=== PATIENT | male | born 1975 | race Two or more races ===

== ENCOUNTER 2016-12-18 09:38 | Emergency (ER) | payer OTHER ==
[~2016-12-18] VITALS: Ht 165.1 cm; Wt 74.8 kg
[2016-12-18 09:58] VITALS: BP 128/87
[2016-12-18] MEDS ORDERED: IBUPROFEN600 MG ORAL (10:21)
[2016-12-18] MEDS ORDERED: BACITRACIN ZIN1 EACH TOPIC (10:21)
[2016-12-18] MEDS ORDERED: KEFLEX500 MG ORAL (10:21)
--- NOTE | 2016-12-18 10:27 | Emergency Room Report ---
History of Present Illness General Chief Complaint: Laceration Source: Patient Present Illness HPI Patient is a 41-year-old male who presented after having injury to his right hand. Patient was washing a knife when he accidentally cut the dorsum of his right index finger. Patient had Injury the last night approximately 10 PM Patient was noted to have no recent fever. Allergies: Coded Allergies: No Known Allergies (Unverified , 12/18/16) Patient History Past Medical History: see triage record Reviewed Nursing Documentation: PMH: Agreed, PSxH: Agreed Nursing Documentation-PMH Past Medical History: No Stated History Review of Systems All Other Systems: negative except mentioned in HPI Physical Exam Vital Signs Date Time Temp Pulse Resp B/P Pulse Ox O2 Delivery O2 Flow Rate FiO2 12/18/16 09:48 98.6 74 16 128/87 98 Room Air General Appearance: well appearing, no apparent distress, alert, GCS 15, non- toxic Head: normocephalic, atraumatic ENT: hearing grossly normal, normal voice Neck: full range of motion, supple Respiratory: no respiratory distress, speaking full sentences Cardiovascular #1: normal inspection Gastrointestinal: normal inspection, non tender, soft Musculoskeletal: normal inspection, no calf tenderness Neurologic: normal inspection, alert, oriented x3, responsive, computer designer III-XII nml as tested, normal gait Psychiatric: mood/affect normal Skin: no rash, laceration - laceration 1cm to dorsum of right index finger, normal extensor function Medical Decision Making Diagnostic Impression: Primary Impression: Laceration ER Course Patient was noted to have laceration to his finger.Patient presented for laceration. Differential diagnoses included foreign body, nerve injury, arterial injury among others. Patient's benign exam and does not appear to require any further imaging or laboratory testing at this time. The patient showed no evidence of infection. Wound is irrigated and sutured loosely with 2 sutures. The patient is to have the wound rechecked in the next 3 days. He is advised to have sutures removed in 2 weeks if sutures not dissolve Last Vital Signs Date Time Temp Pulse Resp B/P Pulse Ox O2 Delivery O2 Flow Rate FiO2 12/18/16 09:58 98.6 16 128/87 98 Room Air 12/18/16 09:48 74 Status: improved Disposition: HOME, SELF-CARE Condition: Stable Scripts Cephalexin* (KEFLEX*) 500 Mg Capsule 500 MG ORAL Q6H, #28 CAP 0 Refills Prov: Curtis Dodson 12/18/16 Ibuprofen* (MOTRIN*) 600 Mg Tablet 600 MG ORAL Q8H Y for For Pain, #30 TAB 0 Refills Prov: Curtis Dodson 12/18/16 Bacitracin Zinc* (BACITRACIN ZINC*) 1 Each Packet 1 APPLIC TOPIC THREE TIMES A DAY, #20 PACKET Prov: Curtis Dodson 12/18/16 Referrals: NON PHYSICIAN (PCP) Patient Instructions: Laceration Care, Adult Curtis Dodson Dec 18, 2016 10:27
[2016-12-18] MEDS ORDERED: Tetanus/Diptheria/Pertussis Vaccine 0.5ml Syr IM ONE (10:30)
[2016-12-18] MEDS ORDERED: Bacitracin Oint UD TOPIC ONE (10:30)
[2016-12-18] MEDS ORDERED: Ketamine HCl 100mg syr IV ONE (10:30)
[2016-12-18] MEDS ORDERED: Lidocaine 1% MPF 10mg/ml 5ml INJ ONE (10:30)
[2016-12-18 10:55] VITALS: BP 121/78
== END 2016-12-18 10:55 | disposition home or self-care (01) ==
LOC: EMR 10:10
DX: S61.210A Laceration without foreign body of right index finger without damage to nail, initial encounter (principal); W26.0XXA Contact with knife, initial encounter; Y92.89 Other specified places as the place of occurrence of the external cause; Y99.0 Civilian activity done for income or pay; Z23 Encounter for immunization
CPT/HCPCS: 90471; 90715; 96372